=== PATIENT | female | born 1975 ===

== ENCOUNTER 2017-06-17 22:18 | Emergency (ER) | payer SELFPAY ==
[2017-06-17 22:26] VITALS: RESP 18; TEMP 97.8; O2SAT 99
--- NOTE | 2017-06-17 23:13 | ED PDOC ---
HPI: Psych/Substance Abuse Time Seen by Provider: 06/17/17 22:39 Chief Complaint (Nursing): Alcohol Ingestion Chief Complaint (Provider): Denies complaints History Per: Patient, Family (Fiance ) History/Exam Limitations: no limitations Onset/Duration Of Symptoms: Days Additional Complaint(s): PT states she was out with sophie and they drank some wine. PT states that had a little bit of unsteady gait and the ambulance was called. Fiance states he was with her all night and she did not fall. He states he has no concerns at this time. Past Medical History Reviewed: Historical Data, Nursing Documentation, Vital Signs Vital Signs: Last Vital Signs Temp 97.8 F 06/17/17 22:23 Pulse 120 H 06/17/17 22:23 Resp 18 06/17/17 22:23 BP 150/94 H 06/17/17 22:23 Pulse Ox 99 06/17/17 22:23 - Medical History PMH: Hyperthyroidism - Surgical History Surgical History: No Surg Hx - Family History Family History: States: No Known Family Hx - Living Arrangements Living Arrangements: With Family - Social History Current smoker - smoking cessation education provided: No - Allergies Allergies/Adverse Reactions: Allergies Allergy/AdvReac Type Severity Reaction Status Date / Time No Known Allergies Allergy Verified 06/17/17 22:22 Review of Systems ROS Statement: Except As Marked, All Systems Reviewed And Found Negative Physical Exam - Reviewed Nursing Documentation Reviewed: Yes Vital Signs Reviewed: Yes - Physical Exam Appears: Positive for: Well, Non-toxic, No Acute Distress Head Exam: Positive for: ATRAUMATIC, NORMAL INSPECTION, NORMOCEPHALIC Skin: Positive for: Normal Color, Warm Eye Exam: Positive for: EOMI, Normal appearance, PERRL ENT: Positive for: Normal ENT Inspection Neck: Positive for: Normal, Painless ROM Cardiovascular/Chest: Positive for: Regular Rate, Rhythm Respiratory: Positive for: CNT, Normal Breath Sounds Gastrointestinal/Abdominal: Positive for: Normal Exam, Bowel Sounds, Soft Back: Positive for: Normal Inspection Extremity: Positive for: Normal ROM Neurologic/Psych: Positive for: Alert, Oriented - ECG O2 Sat by Pulse Oximetry: 99 Medical Decision Making Medical Decision Making: Pt with clear speech and steady gait. Disposition - Clinical Impression Clinical Impression: Alcohol abuse - Patient ED Disposition Is Patient to be Admitted: No Counseled Patient/Family Regarding: Diagnosis, Need For Followup - Disposition Disposition: Routine/Home Disposition Time: 23:10 Condition: GOOD Instructions: Abuse of Alcohol (ED)
[2017-06-17 23:21] VITALS: BP 148/83; PULSE 89
== END 2017-06-17 23:21 | disposition home or self-care (01) ==
LOC: H.ER 22:18
DX: F10.10 Alcohol abuse, uncomplicated (principal); E05.90 Thyrotoxicosis, unspecified without thyrotoxic crisis or storm